=== PATIENT | male | born 1990 | race Two or more races ===

== ENCOUNTER 2018-05-21 11:26 | Emergency (ER) | payer OTHER ==
[~2018-05-21] VITALS: Ht 177.8 cm; Wt 86.2 kg
[~2018-05-21 11:26] MED LIST: ALBU8HFA2 INH; AMOX500 PO; ANTIPSYCHOTIC; ARIP10 PO; Bactroban22 GM TOP; CEPH500 PO; CODBUTACEC PO; CONCERTA; Cleocin HCl300 MG PO; HYDACE5 PO; Keflex500 MG PO; LORTAB 5-325 M1 EACH PO; MECL25 PO; METPHE27ER; NAPR500 PO; Norco 5-325 Ta1 EACH PO; OMEP20ER PO; OMEP40CA12 PO; OXYACE5T PO; PRED20 PO; PROC10 PO; PRODEXEL PO; PROM25 PO; PROM6.25SY PO; PROP10 PO; Percocet 10-321 EACH PO; Percocet 5-3251 EACH PO; RANI150 PO; RISP.5; SERT25; SUCR1 PO; Silvadene20 GM TOP; TRAM50 PO; TRILEPTAL; Ultram50 MG PO; Veetids 500500 MG PO; ZOLOFT; Zithromax250 MG PO
[2018-05-21 12:57] LABS: Influenza A Negative (NEGATIVE)
[2018-05-21 12:58] LABS: Influenza B Negative (NEGATIVE)
[2018-05-21] MEDS ORDERED: Prednisone20 MG PO (13:22)
[2018-05-21] MEDS ORDERED: Flonase 0.05% N16 GM (13:22)
[2018-05-21] MEDS ORDERED: Augmentin 875-1 EACH PO (13:22)
== END 2018-05-21 13:27 | disposition home or self-care (01) ==
LOC: ER 11:26
PROVIDERS: Physician Assistant
DX: J32.9 Chronic sinusitis, unspecified (principal); F17.210 Nicotine dependence, cigarettes, uncomplicated
CPT/HCPCS: 71046; 87804; 99283-25